=== PATIENT | female | born 1945 | race African-American/Black ===

== ENCOUNTER 2017-04-17 08:49 | Inpatient (IN) | payer MEDICARE, MEDICAID ==
[~2017-04-17] VITALS: Ht 160 cm; Wt 84.4 kg
[~2017-04-17 08:49] MED LIST: ATOR-2 PO; CARV3.1242 PO; DIAZ10TA4 PO; FAMO40TA7 PO; FERR-63 PO; FLUO-124 PO; LOSA1TAB34 PO; MONT10TA24 PO; OMEP40CA34 PO; TRAM50TA3 PO
[2017-04-17] MEDS ORDERED: METHYLPREDNISOLONE SOD SUCC 125 MG/2 ML VIAL IV STA (09:38)
[2017-04-17] MEDS ORDERED: PREDNISONE 20MG TABLET PO STA (09:38)
[2017-04-17] MEDS ORDERED: IPRATROPIUM/ALBUTEROL 0.5-3(2.5)MG/3ML NEB HHN ONE ×2 (09:45→10:30)
[2017-04-17 09:59] LABS: BASOPHILS % 0.9 % (0.0-2.0); EOSINOPHILS % 5.6 % (0.0-5.0); HEMATOCRIT. 26.8 % (36.0-48.0); HEMOGLOBIN. 8.8 g/dL (12.0-16.0); LYMPHOCYTES % 17.5 % (20.0-50.0); MEAN CORPUSCULAR HEMOGLOBIN 22.6 pg (28.0-32.0); MEAN CORPUSCULAR VOLUME 68.8 fL (81.0-99.0); MEAN PLATELET VOLUME 7.9 fl (7.4-10.4); MONOCYTES % 10.7 % (2.0-8.0); NEUTROPHILS % 65.3 % (40.0-76.0); PLATELET 291 x1000/uL (130-400); RED CELL DISTRIBUTION WIDTH 17.7 % (11.6-14.6)
[2017-04-17 10:04] LABS: PROTHROMBIN TIME 10.2 sec
[2017-04-17 10:11] LABS: CARBON DIOXIDE 27 mEq/L (21-32); CHLORIDE 106 mEq/L (98-107)
[2017-04-17 10:39] LABS: PLATELET ESTIMATE NORMAL
[2017-04-17] MEDS ORDERED: MAGNESIUM 2 G PREMIX 50 ML IV STA (11:45)
[2017-04-17] MEDS ORDERED: ALBUTEROL (0.083%) 2.5MG/3ML NEB HHN STA (11:45)
[2017-04-17] MEDS ORDERED: ACETAMINOPHEN 325MG TABLET PO PRN (15:45)
[2017-04-17] MEDS ORDERED: MAGNESIUM/ALUMINUM HYDROXIDE/SIMETHICONE 30ML UDC PO PRN (15:45)
[2017-04-17] MEDS ORDERED: DOCUSATE SODIUM 100MG CAPSULE PO PRN (15:45)
[2017-04-17] MEDS ORDERED: METHYLPREDNISOLONE SOD SUCC 125 MG/2 ML VIAL IV SCH (15:45)
[2017-04-17] MEDS ORDERED: METHYLPREDNISOLONE SOD SUCC 40 MG/ML VIAL IV SCH ×2 (15:45→20:15)
[2017-04-17] MEDS ORDERED: ONDANSETRON HCL 4MG/2ML VIAL IV PRN (15:45)
[2017-04-17] MEDS ORDERED: OMEPRAZOLE 20MG CAPSULE EXTENDED RELEASE PO SCH (15:45)
[2017-04-17] MEDS ORDERED: IPRATROPIUM/ALBUTEROL 0.5-3(2.5)MG/3ML NEB INH SCH (15:45)
[2017-04-17] MEDS ORDERED: IPRATROPIUM/ALBUTEROL 0.5-3(2.5)MG/3ML NEB HHN PRN (16:45)
[2017-04-17] MEDS ORDERED: MONTELUKAST SODIUM 10MG TABLET PO SCH ×2 (17:00→20:15)
[2017-04-17] MEDS ORDERED: IPRATROPIUM/ALBUTEROL 0.5-3(2.5)MG/3ML NEB HHN SCH ×2 (18:00→20:15)
[2017-04-17] MEDS: GUAIFENESIN/CODEINE 200-20MG/10ML UDC PO PRN (18:09)
[2017-04-17 20:05] VITALS: BP 107/63
[2017-04-17] MEDS ORDERED: ZOLPIDEM TARTRATE 5MG TABLET PO PRN (21:00)
[2017-04-17] MEDS: MONTELUKAST SODIUM 10MG TABLET PO SCH (22:06)
[2017-04-17] MEDS: METHYLPREDNISOLONE SOD SUCC 40 MG/ML VIAL IV SCH (22:06)
[2017-04-17] MEDS ORDERED: DIAZEPAM 5 MG TABLET PO PRN (23:00)
[2017-04-18] VITALS: BP 96/51
[2017-04-18] MEDS: IPRATROPIUM/ALBUTEROL 0.5-3(2.5)MG/3ML NEB HHN SCH ×4 (01:20→20:04)
[2017-04-18 04:00] VITALS: BP 98/51
[2017-04-18] MEDS: METHYLPREDNISOLONE SOD SUCC 40 MG/ML VIAL IV SCH ×2 (06:05→12:55)
[2017-04-18] MEDS: GUAIFENESIN/CODEINE 200-20MG/10ML UDC PO PRN ×2 (06:08→12:54)
[2017-04-18] MEDS ORDERED: OMEPRAZOLE 20MG CAPSULE EXTENDED RELEASE PO SCH (07:40)
[2017-04-18 08:00] VITALS: BP 95/57
[2017-04-18] MEDS: CARVEDILOL 3.125 MG TABLET PO SCH ×2 (08:41→16:36)
[2017-04-18] MEDS: LOSARTAN POTASSIUM 50 MG TABLET PO SCH (08:42)
[2017-04-18] MEDS: HYDROCHLOROTHIAZIDE 12.5MG CAPSULE PO SCH (08:42)
[2017-04-18] MEDS: FAMOTIDINE 20MG TABLET PO SCH (08:58)
[2017-04-18] MEDS: FLUOXETINE HCL 20MG CAPSULE PO SCH (08:58)
[2017-04-18] MEDS: FERROUS SULFATE 325MG TABLET PO SCH ×2 (08:59→16:39)
[2017-04-18] MEDS ORDERED: MONTELUKAST SODIUM 10MG TABLET PO SCH (09:00)
[2017-04-18 12:00] VITALS: BP 105/49
[2017-04-18 16:00] VITALS: BP 98/49
[2017-04-18] MEDS: MONTELUKAST SODIUM 10MG TABLET PO SCH (16:39)
[2017-04-18] MEDS ORDERED: DOCUSATE SODIUM 100MG CAPSULE PO PRN (17:00)
[2017-04-18 20:00] VITALS: BP 105/46
[2017-04-18] MEDS ORDERED: METHYLPREDNISOLONE SOD SUCC 40 MG/ML VIAL IV SCH (21:00)
[2017-04-18] MEDS: ATORVASTATIN CALCIUM 40MG TABLET PO SCH (21:36)
[2017-04-19] VITALS: BP 106/61
[2017-04-19] MEDS: IPRATROPIUM/ALBUTEROL 0.5-3(2.5)MG/3ML NEB HHN SCH ×4 (00:50→20:54)
[2017-04-19 04:00] VITALS: BP 102/55
[2017-04-19 08:00] VITALS: BP 118/64
[2017-04-19 08:16] LABS: BG BASE EXCESS -1.2 mmol/L (-2.0-2.0); BG CARBOXYHEMOGLOBIN 0.5 % (0.5-1.5); BG DEOXYHEMOGLOBIN 4.1 % (0.0-5.0); BG FRACTION INSPIRED OXYGEN 21; BG HCO3 ACT 22.7 mmol/L (22.0-26.0); BG METHEMOGLOBIN 0.4 % (0.0-1.5); BG OXYGEN SATURATION 95.9 % (92.0-98.5); BG PCO2 34.9 mmHg (35.0-45.0); BG PH 7.431 (7.350-7.450); BG PO2 86.6 mmHg (75.0-100.0); BG SAMPLE SITE RIGHT RADIAL; BG TOTAL HEMOGLOBIN 10.3 g/dL (12.0-18.0); BG VENT MODE ROOM AIR
[2017-04-19] MEDS ORDERED: PREDNISONE 20MG TABLET PO SCH (09:00)
[2017-04-19] MEDS: FAMOTIDINE 20MG TABLET PO SCH (09:04)
[2017-04-19] MEDS: LOSARTAN POTASSIUM 50 MG TABLET PO SCH (09:05)
[2017-04-19] MEDS: FLUOXETINE HCL 20MG CAPSULE PO SCH (09:05)
[2017-04-19] MEDS: HYDROCHLOROTHIAZIDE 12.5MG CAPSULE PO SCH (09:05)
[2017-04-19] MEDS: GUAIFENESIN/CODEINE 200-20MG/10ML UDC PO PRN ×2 (09:05→16:27)
[2017-04-19] MEDS: CARVEDILOL 3.125 MG TABLET PO SCH ×2 (09:05→16:28)
[2017-04-19] MEDS: FERROUS SULFATE 325MG TABLET PO SCH ×2 (09:05→16:27)
[2017-04-19 12:00] VITALS: BP 108/63
[2017-04-19] MEDS: MONTELUKAST SODIUM 10MG TABLET PO SCH (16:27)
[2017-04-19] MEDS: METHYLPREDNISOLONE SOD SUCC 40 MG/ML VIAL IV SCH (17:17)
[2017-04-19 20:00] VITALS: BP 114/66
[2017-04-19] MEDS: ATORVASTATIN CALCIUM 40MG TABLET PO SCH (21:27)
[2017-04-20] VITALS: BP 110/57
[2017-04-20] MEDS: IPRATROPIUM/ALBUTEROL 0.5-3(2.5)MG/3ML NEB HHN SCH ×4 (01:10→21:31)
[2017-04-20] MEDS: METHYLPREDNISOLONE SOD SUCC 40 MG/ML VIAL IV SCH ×3 (01:46→17:10)
[2017-04-20 04:00] VITALS: BP 101/57
[2017-04-20] MEDS: GUAIFENESIN/CODEINE 200-20MG/10ML UDC PO PRN (06:03)
[2017-04-20 08:00] VITALS: BP 110/51
[2017-04-20] MEDS: HYDROCHLOROTHIAZIDE 12.5MG CAPSULE PO SCH (09:00)
[2017-04-20] MEDS: LOSARTAN POTASSIUM 50 MG TABLET PO SCH (09:00)
[2017-04-20] MEDS: CARVEDILOL 3.125 MG TABLET PO SCH ×2 (09:00→17:10)
[2017-04-20] MEDS: FAMOTIDINE 20MG TABLET PO SCH (09:15)
[2017-04-20] MEDS: FLUOXETINE HCL 20MG CAPSULE PO SCH (09:15)
[2017-04-20] MEDS: FERROUS SULFATE 325MG TABLET PO SCH ×2 (09:15→17:10)
[2017-04-20 11:57] VITALS: BP 107/43
[2017-04-20] MEDS ORDERED: AZITHROMYCIN 500 MG TABLET PO NR (12:00)
[2017-04-20 12:21] LABS: HEMATOCRIT. 27.7 % (36.0-48.0); HEMOGLOBIN. 8.9 g/dL (12.0-16.0); MEAN CORPUSCULAR HEMOGLOBIN 22.2 pg (28.0-32.0); MEAN CORPUSCULAR VOLUME 69.2 fL (81.0-99.0); PLATELET 280 x1000/uL (130-400); RED BLOOD CELL COUNT 4.01 mill/uL (4.2-5.4); RED CELL DISTRIBUTION WIDTH 17.7 % (11.6-14.6)
[2017-04-20 12:41] LABS: CARBON DIOXIDE 26 mEq/L (21-32); CHLORIDE 102 mEq/L (98-107)
[2017-04-20 15:58] VITALS: BP 120/63
[2017-04-20] MEDS: MONTELUKAST SODIUM 10MG TABLET PO SCH (17:10)
[2017-04-20 17:36] LABS: PLATELET ESTIMATE NORMAL
[2017-04-20 20:00] VITALS: BP 115/62
[2017-04-20] MEDS: ATORVASTATIN CALCIUM 40MG TABLET PO SCH (21:17)
[2017-04-21] VITALS: BP 117/68
[2017-04-21] MEDS: METHYLPREDNISOLONE SOD SUCC 40 MG/ML VIAL IV SCH ×3 (00:48→17:54)
[2017-04-21] MEDS: IPRATROPIUM/ALBUTEROL 0.5-3(2.5)MG/3ML NEB HHN SCH ×4 (02:45→20:10)
[2017-04-21 03:58] VITALS: BP 110/59
[2017-04-21 06:42] LABS: HEMATOCRIT. 27.9 % (36.0-48.0); HEMOGLOBIN. 8.7 g/dL (12.0-16.0); MEAN CORPUSCULAR HEMOGLOBIN 21.7 pg (28.0-32.0); MEAN CORPUSCULAR VOLUME 69.6 fL (81.0-99.0); MEAN PLATELET VOLUME 8.9 fl (7.4-10.4); PLATELET 287 x1000/uL (130-400); RED BLOOD CELL COUNT 4.01 mill/uL (4.2-5.4); RED CELL DISTRIBUTION WIDTH 17.5 % (11.6-14.6)
[2017-04-21 07:08] LABS: CARBON DIOXIDE 27 mEq/L (21-32); CHLORIDE 105 mEq/L (98-107)
[2017-04-21 08:00] VITALS: BP 120/74
[2017-04-21] MEDS: LOSARTAN POTASSIUM 50 MG TABLET PO SCH (08:32)
[2017-04-21] MEDS: CARVEDILOL 3.125 MG TABLET PO SCH ×2 (08:33→17:00)
[2017-04-21] MEDS: FLUOXETINE HCL 20MG CAPSULE PO SCH (08:33)
[2017-04-21] MEDS: HYDROCHLOROTHIAZIDE 12.5MG CAPSULE PO SCH (08:33)
[2017-04-21] MEDS: FERROUS SULFATE 325MG TABLET PO SCH ×2 (08:33→17:54)
[2017-04-21] MEDS: FAMOTIDINE 20MG TABLET PO SCH (08:41)
[2017-04-21] MEDS ORDERED: AZITHROMYCIN 250 MG TABLET PO SCH (09:00)
[2017-04-21 11:57] VITALS: BP 104/50
[2017-04-21 16:00] VITALS: BP 111/60
[2017-04-21] MEDS: GUAIFENESIN/CODEINE 200-20MG/10ML UDC PO PRN (17:54)
[2017-04-21] MEDS: MONTELUKAST SODIUM 10MG TABLET PO SCH (17:55)
[2017-04-21 19:35] VITALS: BP 123/69
[2017-04-21 20:12] LABS: NUCLEATED RED BLOOD CELLS 1 /100 WBC; PLATELET ESTIMATE NORMAL
== END 2017-04-21 20:20 | disposition home or self-care (01) | DRG 189 ==
LOC: ER 09:42 → SUPCPDRO 17:22 → ENRESERV 18:43 → ER 20:14 → 7WST 21:55
PROVIDERS: ADMIT Family Medicine Adult Medicine; ATTEND Family Medicine Adult Medicine
DX: J96.00 Acute respiratory failure, unspecified whether with hypoxia or hypercapnia (principal); J45.901 Unspecified asthma with (acute) exacerbation; J44.1 Chronic obstructive pulmonary disease with (acute) exacerbation; E44.1 Mild protein-calorie malnutrition; Z96.651 Presence of right artificial knee joint; I10 Essential (primary) hypertension; K21.9 Gastro-esophageal reflux disease without esophagitis; D64.9 Anemia, unspecified; F32.9 Major depressive disorder, single episode, unspecified; Z83.3 Family history of diabetes mellitus; Z88.0 Allergy status to penicillin; Z86.73 Personal history of transient ischemic attack (TIA), and cerebral infarction without residual deficits; Z90.710 Acquired absence of both cervix and uterus; Z68.32 Body mass index [BMI] 32.0-32.9, adult; Z79.899 Other long term (current) drug therapy
CPT/HCPCS: 36415; 36600; 71010; 80048; 80053; 82375; 82805; 83735; 85025; 85610; 93005; 94640; 96365; 96366; 96375; 97116; 97162; 97535; 99285; J2920; J2930; J3475; J7512; J7620

== ENCOUNTER 2017-07-30 12:22 | Inpatient (IN) | payer MEDICARE, MEDICAID ==
[~2017-07-30] VITALS: Ht 30.5 cm; Wt 0.5 kg
[2017-07-30 12:40] VITALS: BP 119/62
[2017-07-30] MEDS ORDERED: ONDANSETRON HCL 4MG/2ML VIAL IV PRN (13:45)
[2017-07-30] MEDS ORDERED: IPRATROPIUM/ALBUTEROL 0.5-3(2.5)MG/3ML NEB HHN PRN (13:45)
[2017-07-30 15:00] VITALS: BP 145/78
[2017-07-30 15:00] LABS: BASOPHILS % 0.8 % (0.0-2.0); EOSINOPHILS % 4.7 % (0.0-5.0); HEMATOCRIT. 23.3 % (36.0-48.0); HEMOGLOBIN. 7.6 g/dL (12.0-16.0); LYMPHOCYTES % 23.4 % (20.0-50.0); MEAN CORPUSCULAR HEMOGLOBIN 20.8 pg (28.0-32.0); MEAN CORPUSCULAR VOLUME 63.7 fL (81.0-99.0); MEAN PLATELET VOLUME 8.7 fl (7.4-10.4); MONOCYTES % 12.7 % (2.0-8.0); NEUTROPHILS % 58.4 % (40.0-76.0); PLATELET 238 x1000/uL (130-400); RED BLOOD CELL COUNT 3.66 mill/uL (4.2-5.4); RED CELL DISTRIBUTION WIDTH 20.8 % (11.6-14.6)
[2017-07-30 15:05] LABS: CHLORIDE 107 mEq/L (98-107)
[2017-07-30 15:10] LABS: CARBON DIOXIDE 29 mEq/L (21-32)
[2017-07-30 16:00] VITALS: BP 114/60
[2017-07-30] MEDS ORDERED: POTASSIUM CHLORIDE 20MEQ TABLET SR PO NR (18:15)
[2017-07-30] MEDS: FERROUS SULFATE 325MG TABLET PO SCH (18:35)
[2017-07-30 20:00] VITALS: BP 153/59
[2017-07-30] MEDS ORDERED: KCL 20MEQ/100ML PREMIX 100 ML IV NR (20:00)
[2017-07-30] MEDS: ATORVASTATIN CALCIUM 40MG TABLET PO SCH (20:46)
[2017-07-30] MEDS: TRAMADOL 50MG TABLET PO PRN (20:51)
[2017-07-31] MEDS: OMEPRAZOLE 20MG CAPSULE EXTENDED RELEASE PO SCH (07:20)
[2017-07-31 08:00] VITALS: BP 108/57
[2017-07-31] MEDS ORDERED: LEXAPRO 5 MG PO SCH (09:00)
[2017-07-31] MEDS: CITALOPRAM HYDROBROMIDE 10MG TABLET PO SCH (09:15)
[2017-07-31] MEDS: FERROUS SULFATE 325MG TABLET PO SCH ×3 (09:15→18:56)
[2017-07-31 11:52] VITALS: BP 141/57
[2017-07-31 14:30] LABS: HEMATOCRIT 28.2 % (36.0-48.0); HEMOGLOBIN 8.9 g/dL (12.0-16.0); MEAN CORPUSCULAR HEMOGLOBIN 20.8 pg (28.0-32.0); MEAN CORPUSCULAR VOLUME 66.2 fL (81.0-99.0); PLATELET 233 x1000/uL (130-400); RED BLOOD CELL COUNT 4.26 mill/uL (4.2-5.4); RED CELL DISTRIBUTION WIDTH 22.1 % (11.6-14.6)
[2017-07-31 15:58] VITALS: BP 106/49
[2017-07-31 19:48] VITALS: BP 111/58
[2017-07-31] MEDS: ATORVASTATIN CALCIUM 40MG TABLET PO SCH (20:03)
[2017-07-31] MEDS: TRAMADOL 50MG TABLET PO PRN (20:03)
[2017-08-01] VITALS: BP_SYST 122
[2017-08-01 04:00] VITALS: BP 110/49
[2017-08-01 06:39] LABS: BASOPHILS % 0.7 % (0.0-2.0); HEMATOCRIT. 27.7 % (36.0-48.0); HEMOGLOBIN. 8.8 g/dL (12.0-16.0); LYMPHOCYTES % 22.4 % (20.0-50.0); MEAN CORPUSCULAR HEMOGLOBIN 20.9 pg (28.0-32.0); MEAN CORPUSCULAR VOLUME 65.8 fL (81.0-99.0); MEAN PLATELET VOLUME 9.3 fl (7.4-10.4); MONOCYTES % 10.4 % (2.0-8.0); NEUTROPHILS % 61.5 % (40.0-76.0); PLATELET 233 x1000/uL (130-400); RED BLOOD CELL COUNT 4.21 mill/uL (4.2-5.4)
[2017-08-01] MEDS: OMEPRAZOLE 20MG CAPSULE EXTENDED RELEASE PO SCH (06:57)
[2017-08-01 07:07] LABS: CARBON DIOXIDE 28 mEq/L (21-32); CHLORIDE 105 mEq/L (98-107); TOTAL IRON BINDING CAPACITY 441 ug/dL (250-450)
[2017-08-01 08:00] VITALS: BP 112/59
[2017-08-01] MEDS: DIPHENHYDRAMINE 25MG CAPSULE PO PRN ×2 (08:16→20:44)
[2017-08-01] MEDS: FERROUS SULFATE 325MG TABLET PO SCH ×3 (08:16→18:31)
[2017-08-01] MEDS: CITALOPRAM HYDROBROMIDE 10MG TABLET PO SCH (08:19)
[2017-08-01 09:48] LABS: PLATELET ESTIMATE NORMAL
[2017-08-01 12:00] VITALS: BP 119/56
[2017-08-01] MEDS ORDERED: POTASSIUM CHLORIDE 20MEQ TABLET SR PO SCH (13:15)
[2017-08-01 16:00] VITALS: BP 108/56
[2017-08-01 20:00] VITALS: BP 106/53
[2017-08-01] MEDS: ATORVASTATIN CALCIUM 40MG TABLET PO SCH (20:44)
[2017-08-01] MEDS: TRAMADOL 50MG TABLET PO PRN (20:46)
[2017-08-02] VITALS: BP 114/81
[2017-08-02 04:00] VITALS: BP 145/64
[2017-08-02] MEDS: OMEPRAZOLE 20MG CAPSULE EXTENDED RELEASE PO SCH (07:17)
[2017-08-02 08:00] VITALS: BP 104/52
[2017-08-02 08:43] LABS: HEMATOCRIT 28.1 % (36.0-48.0); HEMOGLOBIN 8.9 g/dL (12.0-16.0); MEAN CORPUSCULAR HEMOGLOBIN 21.2 pg (28.0-32.0); MEAN CORPUSCULAR VOLUME 66.4 fL (81.0-99.0); PLATELET 239 x1000/uL (130-400); RED BLOOD CELL COUNT 4.23 mill/uL (4.2-5.4); RED CELL DISTRIBUTION WIDTH 22.5 % (11.6-14.6)
[2017-08-02] MEDS: CITALOPRAM HYDROBROMIDE 10MG TABLET PO SCH (08:53)
[2017-08-02] MEDS: FERROUS SULFATE 325MG TABLET PO SCH ×3 (08:53→17:55)
[2017-08-02 11:14] LABS: CARBON DIOXIDE 30 mEq/L (21-32); CHLORIDE 109 mEq/L (98-107)
[2017-08-02 12:00] VITALS: BP 122/49
[2017-08-02] MEDS: DIPHENHYDRAMINE 25MG CAPSULE PO PRN (13:21)
[2017-08-02 16:01] VITALS: BP 118/54
[2017-08-02 20:00] VITALS: BP 145/57
[2017-08-02] MEDS: TRAMADOL 50MG TABLET PO PRN (20:52)
[2017-08-02] MEDS: ATORVASTATIN CALCIUM 40MG TABLET PO SCH (20:52)
[2017-08-03] VITALS: BP 117/65
[2017-08-03 04:00] VITALS: BP 122/77
[2017-08-03 06:57] LABS: BASOPHILS % 0.7 % (0.0-2.0); EOSINOPHILS % 3.9 % (0.0-5.0); HEMATOCRIT. 27.7 % (36.0-48.0); HEMOGLOBIN. 8.9 g/dL (12.0-16.0); LYMPHOCYTES % 21.9 % (20.0-50.0); MEAN CORPUSCULAR HEMOGLOBIN 21.6 pg (28.0-32.0); MEAN CORPUSCULAR VOLUME 66.9 fL (81.0-99.0); MEAN PLATELET VOLUME 8.9 fl (7.4-10.4); MONOCYTES % 10.9 % (2.0-8.0); NEUTROPHILS % 62.6 % (40.0-76.0); PLATELET 216 x1000/uL (130-400); RED BLOOD CELL COUNT 4.14 mill/uL (4.2-5.4); RED CELL DISTRIBUTION WIDTH 23.4 % (11.6-14.6)
[2017-08-03 06:58] LABS: CARBON DIOXIDE 28 mEq/L (21-32); CHLORIDE 107 mEq/L (98-107)
[2017-08-03 07:56] VITALS: BP 130/55
[2017-08-03] MEDS: OMEPRAZOLE 20MG CAPSULE EXTENDED RELEASE PO SCH (07:57)
[2017-08-03] MEDS: CITALOPRAM HYDROBROMIDE 10MG TABLET PO SCH (08:15)
[2017-08-03] MEDS: FERROUS SULFATE 325MG TABLET PO SCH ×2 (08:15→13:44)
[2017-08-03 11:20] VITALS: BP 136/57
== END 2017-08-03 15:40 | disposition home or self-care (01) | DRG 377 ==
LOC: 6WST 12:22
PROVIDERS: ADMIT Family Medicine Adult Medicine; ATTEND Family Medicine Adult Medicine
PROC: 30233N1 Transfusion of Nonautologous Red Blood Cells into Peripheral Vein, Percutaneous Approach (ICD-10-PCS; principal; 2017-07-31)
DX: K92.2 Gastrointestinal hemorrhage, unspecified (principal); N17.0 Acute kidney failure with tubular necrosis; E44.1 Mild protein-calorie malnutrition; Z68.1 Body mass index [BMI] 19.9 or less, adult; D50.0 Iron deficiency anemia secondary to blood loss (chronic); K44.9 Diaphragmatic hernia without obstruction or gangrene; F32.9 Major depressive disorder, single episode, unspecified; J45.909 Unspecified asthma, uncomplicated; Z96.651 Presence of right artificial knee joint; E87.6 Hypokalemia; K29.60 Other gastritis without bleeding; I12.9 Hypertensive chronic kidney disease with stage 1 through stage 4 chronic kidney disease, or unspecified chronic kidney disease; N18.9 Chronic kidney disease, unspecified; Z86.73 Personal history of transient ischemic attack (TIA), and cerebral infarction without residual deficits; Z90.710 Acquired absence of both cervix and uterus; Z88.0 Allergy status to penicillin
CPT/HCPCS: 36415; 80048; 80053; 82270; 82728; 83540; 83550; 83735; 85025; 85027; 86850; 86870; 86900; 86920; J3480; J7050; P9016; Q0163

== ENCOUNTER 2018-06-02 11:38 | Emergency (ER) | payer MEDICARE, MEDICAID ==
[~2018-06-02] VITALS: Ht 160 cm; Wt 82.0 kg
[2018-06-02 12:53] LABS: BASOPHILS % 1.3 % (0.0-2.0); EOSINOPHILS % 7.9 % (0.0-5.0); HEMATOCRIT. 32.5 % (36.0-48.0); HEMOGLOBIN. 10.6 g/dL (12.0-16.0); LYMPHOCYTES % 17.4 % (20.0-50.0); MEAN CORPUSCULAR HEMOGLOBIN 21.7 pg (28.0-32.0); MEAN CORPUSCULAR VOLUME 66.7 fL (81.0-99.0); MEAN PLATELET VOLUME 8.2 fl (7.4-10.4); MONOCYTES % 10.5 % (2.0-8.0); NEUTROPHILS % 62.9 % (40.0-76.0); PLATELET 334 x1000/uL (130-400); RED BLOOD CELL COUNT 4.87 mill/uL (4.2-5.4); RED CELL DISTRIBUTION WIDTH 16.2 % (11.6-14.6)
[2018-06-02 12:56] LABS: CHLORIDE 92 mEq/L (98-107)
[2018-06-02 12:57] LABS: PROTHROMBIN TIME 10.1 sec (9.1-11.1)
[2018-06-02] MEDS ORDERED: IPRATROPIUM BROMIDE (0.02%) 0.5MG/2.5ML NEB HHN STA (13:11)
[2018-06-02] MEDS ORDERED: ALBUTEROL (0.083%) 2.5MG/3ML NEB HHN STA (13:11)
[2018-06-02] MEDS ORDERED: PREDNISONE 20MG TABLET PO STA (13:11)
[2018-06-02 13:22] LABS: PLATELET ESTIMATE NORMAL
[2018-06-02 14:20] VITALS: BP 120/87
== END 2018-06-02 14:50 | disposition home or self-care (01) ==
LOC: ER 12:16
DX: J40 Bronchitis, not specified as acute or chronic (principal); K21.9 Gastro-esophageal reflux disease without esophagitis; I10 Essential (primary) hypertension; Z88.0 Allergy status to penicillin; Z86.73 Personal history of transient ischemic attack (TIA), and cerebral infarction without residual deficits; Z90.710 Acquired absence of both cervix and uterus; Z96.659 Presence of unspecified artificial knee joint
CPT/HCPCS: 36415; 71045; 80053; 83880; 84484; 85025; 85610; 93005; 94640; 99285; J7512; J7611